=== PATIENT | female | born 1960 | race American Indian/Alaskan Native ===

== ENCOUNTER 2018-01-08 20:20 | Emergency (ER) | payer MEDICARE, OTHER ==
[2018-01-08 20:20] VITALS: BMI 28.0
[2018-01-08 20:31] VITALS: RESP 20; TEMP 98.7; O2SAT 98
--- NOTE | 2018-01-08 20:36 | C.PDOC ---
History Of Present Illness 58 year old female with PMHx of PE, Atrial fibrillation, Protein S deficiency and sarcoidosis presents to ED complaining of chronic midsternal chest pain from known PE (being treated with Lovenox 70mg Q12H) that worsened today after walking in the cold. Pain is described as aching and rated 8/10. Pain does not radiate. Patient also complains of severe right low back pain that began today after bending over. Back pain worsens with movement. Treatment with Dilaudid 3mg at home provided no improvement. Patient denies new shortness of breath, leg pain or swelling, fever, chills, diaphoresis, nausea, vomiting, and palpitations. <Joana Hines P - Last Filed: 01/08/18 21:38> <Joana Hines P - Last Filed: 01/08/18 21:38> <Indira Palm - Last Filed: 01/08/18 23:40> Time Seen by Provider: 01/08/18 20:35 Chief Complaint (Nursing): Chest Pain Past Medical History Vital Signs: Last Vital Signs Temp 98.7 F 01/08/18 20:26 Pulse 74 01/08/18 20:26 Resp 20 01/08/18 20:26 BP 133/90 01/08/18 20:26 Pulse Ox 98 01/08/18 21:15 <Joana Hines P - Last Filed: 01/08/18 21:38> Reviewed: Historical Data, Nursing Documentation, Vital Signs Vital Signs: Last Vital Signs Temp 98.7 F 01/08/18 20:26 Pulse 74 01/08/18 20:26 Resp 20 01/08/18 20:26 BP 133/90 01/08/18 20:26 Pulse Ox 98 01/08/18 20:26 - Medical History PMH: Atrial Fibrillation, GERD Surgical History: Appendectomy, Cholecystectomy Family History: States: No Known Family Hx - Social History Hx Alcohol Use: No Hx Substance Use: No - Immunization History Hx Tetanus Toxoid Vaccination: No Hx Influenza Vaccination: No <Indira Palm - Last Filed: 01/08/18 23:40> Review Of Systems Constitutional: Negative for: Fever, Chills, Sweats Cardiovascular: Positive for: Chest Pain. Negative for: Palpitations, Orthopnea Respiratory: Positive for: Shortness of Breath (baseline). Negative for: Cough Gastrointestinal: Negative for: Nausea, Vomiting, Abdominal Pain, Diarrhea Musculoskeletal: Positive for: Back Pain (R low back). Negative for: Neck Pain, Shoulder Pain, Arm Pain Neurological: Negative for: Weakness, Numbness, Dizziness <Joana Hines P - Last Filed: 01/08/18 21:38> Physical Exam - Physical Exam Appears: Non-toxic, No Acute Distress Skin: Normal Color, Warm, Dry Head: Atraumatic, Normacephalic Eye(s): bilateral: Normal Inspection, PERRL, EOMI Nose: Normal, No Flaring Oral Mucosa: Moist Throat: Normal Neck: Normal, Normal ROM Chest: No Tenderness Cardiovascular: Rhythm Regular, No Friction Rub, No Murmur Respiratory: Normal Breath Sounds, No Rales, No Rhonchi, No Wheezing Gastrointestinal/Abdominal: Bowel Sounds, Soft, No Tenderness, No Guarding, No Rebound Back: Other (Tenderness and hypertonicity to L T9-12, R L3-5) Extremity: Normal ROM, No Tenderness, No Pedal Edema, No Calf Tenderness, Capillary Refill (normal) Neurological/Psych: Oriented x3, Normal Speech, Normal Cranial Nerves (grossly), Normal Motor <Joana Hines P - Last Filed: 01/08/18 21:38> ED Course And Treatment - Laboratory Results Result Diagrams: 01/08/18 21:27 <Joana Hines P - Last Filed: 01/08/18 21:38> - Laboratory Results Result Diagrams: 01/08/18 21:27 01/08/18 21:27 ECG: Interpreted By Me, Viewed By Me ECG Rhythm: Sinus Rhythm (75), Nonspecific Changes O2 Sat by Pulse Oximetry: 98 Pulse Ox Interpretation: Normal - Radiology CXR: Interpreted by Me, Viewed By Me <Indira Palm - Last Filed: 01/08/18 23:40> Against Medical Advice - AMA Patient Left Against Medical Advice: The patient declines admission to the hospital and wishes to leave the Emergency Department. This action is against my medical advice. This decision was made with informed refusal. The patient was told that admission to the hospital is necessary. Explanation of the reasons why were discussed. The risks of leaving were explained to the patient and include, but are not limited to, worsening of known or currently unknown conditions, permanent disability and from undiagnosed or untreated conditions. The patient has the capacity to make this informed decision and understands my explanation of the current medical problem and risks of leaving. The patient voluntarily accepts these risks and signed an AMA form documenting our conversation. The patient was given the opportunity to ask questions and reconsider. The patient was encouraged to return to the Emergency Department at any time for further care. <Indira Palm - Last Filed: 01/08/18 23:40> Medical Decision Making Medical Decision Making: Plan: CBC CMP Troponin BNP EKG CXR <Joana Hines P - Last Filed: 01/08/18 21:38> Disposition <Joana iHnes P - Last Filed: 01/08/18 21:38> Counseled Patient/Family Regarding: Studies Performed, Diagnosis, Need For Followup - Disposition Disposition Time: 20:35 <Indira Palm - Last Filed: 01/08/18 23:40> - Disposition Disposition: AGAINST MEDICAL ADVICE Condition: FAIR Additional Instructions: Please follow up with your doctor Instructions: Chronic Pain Forms: [facility] ([place]), General Discharge Instructions - Clinical Impression Clinical Impression: Chronic pain
[2018-01-08 21:33] LABS: HEMOGLOBIN 13.5 g/dL (11.0-16.0); LYMPH # 1.8 K/uL (1.0-4.3); LYMPH % 43.9 % (20.0-40.0); MEAN CELL VOLUME 81.3 fL (81.0-99.0); MEAN CORPUSCULAR HEMOGLOBIN 27.1 pg (27.0-31.0); MEAN CORPUSCULAR HGB CONC 33.4 g/dL (33.0-37.0); MEAN PLATELET VOLUME 10.5 fL (7.2-11.7); MONO # 0.3 K/uL (0.0-0.8); MONO % 6.1 % (0.0-10.0); NRBC % 0.1 % (0.0-2.0); RBC 4.98 Mil/uL (3.80-5.20); RED CELL DISTRIBUTION WIDTH 14.3 % (11.5-14.5); WHITE BLOOD COUNT 4.2 K/uL (4.8-10.8)
[2018-01-08 21:44] LABS: INR 1.2; PROTHROMBIN TIME 12.8 SECONDS (9.7-12.2)
[2018-01-08 21:46] LABS: ALB/GLOB RATIO 1.3 (1.0-2.1); ALBUMIN 4.3 g/dL (3.5-5.0); ALT/SGPT 33 U/L (9-52); AST/SGOT 26 U/L (14-36); BLOOD UREA NITROGEN 13 mg/dL (7-17); CALCIUM 9.3 mg/dl (8.6-10.4); GFR NON-AFRICAN AMERICAN 57
[2018-01-08 21:56] LABS: B-TYPE NATRIURETIC PEPTIDE 95.9 pg/mL (0-900)
[2018-01-08 23:27] LABS: SQUAMOUS EPITHIAL 3 /hpf (0-5); URINE BACTERIA FEW (<OCC); URINE BILIRUBIN NEGATIVE (NEGATIVE); URINE BLOOD NEGATIVE (NEGATIVE); URINE CLARITY Hazy (Clear); URINE COLOR Yellow (YELLOW); URINE GLUCOSE (UA) NORMAL (Normal); URINE LEUKOCYTE ESTERASE 3+ Leu/uL (Negative); URINE PROTEIN NEGATIVE (NEGATIVE); URINE UROBILINOGEN NORMAL mg/dL (0.2-1.0)
[2018-01-09 00:49] VITALS: BP 138/79; PULSE 79
--- NOTE | 2018-01-09 08:36 | RAD ---
Date of service: 01/08/2018 PROCEDURE: CHEST RADIOGRAPH, 1 VIEW HISTORY: chest pain COMPARISON: 08/27/2015 FINDINGS: LUNGS: Clear. PLEURA: No pneumothorax or pleural fluid seen. CARDIOVASCULAR: There is presence of aortic atherosclerotic calcification on x-ray. Top-normal heart size. No chan pulmonary venous congestion OSSEOUS STRUCTURES: Thoracic spondylosis. VISUALIZED UPPER ABDOMEN: Normal. OTHER FINDINGS: None. IMPRESSION: No acute cardiopulmonary pathology noted
--- NOTE | 2018-01-13 07:31 | CARD ---
APPROVED REPORT Date of service: 01/08/2018 EKG Measurement Heart [id number] <Conclusion> Normal sinus rhythm with sinus arrhythmia Minimal voltage criteria for LVH, may be normal variant Borderline ECG
== END 2018-01-08 20:35 | disposition left against medical advice (07) ==
LOC: C.ER 20:20
DX: G89.29 Other chronic pain (principal)